=== PATIENT | male | born 1980 | race Caucasian/White ===

== ENCOUNTER 2019-06-30 12:40 | Day surgery (SDC) | payer OTHER ==
[2019-06-30] MEDS: CEFAZOLIN 2 GM/50 ML (PMX) 50 ML IVPB (12:30)
[2019-06-30] MEDS: SOD CHLORIDE 0.9% 1,000 ML IV (13:02)
[2019-06-30 13:17] LABS: ADD MAN DIFF? NO
[2019-06-30 13:19] LABS: WHITE BLOOD COUNT 9.2 10^3/ul (4.8-10.8)
[2019-06-30 13:19] LABS: BASOPHIL # 0.1 10^3/ul (0.0-0.1); BASOPHILS % 0.5 % (0.0-2.0); EOSINOPHILS % 0.2 % (0.0-7.0); HEMATOCRIT 44.2 % (42.0-52.0); HEMOGLOBIN 15.4 g/dl (14.0-18.0); LYMPHOCYTES # 3.2 10^3/ul (0.8-2.9); LYMPHOCYTES % 34.4 % (15.0-51.0); MEAN CORPUSCULAR HEMOGLOBIN 30.1 pg (29.0-33.0); MEAN CORPUSCULAR HGB CONC 34.8 g/dl (32.0-37.0); MEAN CORPUSCULAR VOLUME 86.5 fl (82.0-101.0); MEAN PLATELET VOLUME 8.5 fl (7.4-10.4); MONOCYTE # 0.4 10^3/ul (0.3-0.9); MONOCYTES % 4.6 % (0.0-11.0); NEUTROPHIL # 5.5 10^3/ul (1.6-7.5); NEUTROPHILS % 59.9 % (39.0-77.0); PLATELET COUNT 338 10^3/UL (140-415); RED BLOOD COUNT 5.11 10^6/ul (4.70-6.10); RED CELL DISTRIBUTION WIDTH 11.9 % (11.5-14.5)
[2019-06-30] MEDS ORDERED: PROPOFOL 20 ML (13:28)
[2019-06-30] MEDS ORDERED: ROCURONIUM 50 MG INJ (13:30)
[2019-06-30] MEDS ORDERED: LIDOCAINE 2% (SDV) 5 ML INJ (13:30)
[2019-06-30 13:38] LABS: ALANINE AMINOTRANSFERASE 59 IU/L (13-69); ALBUMIN/GLOBULIN RATIO 1.47; ALKALINE PHOSPHATASE 71 IU/L (42-121); ANION GAP 11 (5-13); ASPARTATE AMINO TRANSFERASE 39 IU/L (15-46); BILIRUBIN,INDIRECT 0.5 mg/dl (0-1.1); BILIRUBIN,TOTAL 0.5 mg/dl (0.2-1.3); BLOOD UREA NITROGEN 10 mg/dl (7-20); CALCIUM 9.7 mg/dl (8.4-10.2); CARBON DIOXIDE 26 mmol/L (21-31); CHLORIDE 107 mmol/L (97-110); CREATININE 0.85 mg/dl (0.61-1.24); Estimated GFR > 60 mL/min (>60); GLUCOSE 102 mg/dl (70-220); SODIUM 144 mmol/L (135-144); TOTAL PROTEIN 8.4 g/dl (6.1-8.1)
[2019-06-30 13:40] LABS: POTASSIUM 3.9 mmol/L (3.5-5.1)
[2019-06-30 13:57] LABS: INR 0.91; PROTIME 12.4 Sec (11.9-14.9)
[2019-06-30 13:58] LABS: PARTIAL THROMBOPLASTIN TIME 28.2 Sec (23.0-35.0)
[2019-06-30] MEDS ORDERED: DEXAMETHASONE 4 MG/ML 5 ML INJ (14:24)
[2019-06-30] MEDS ORDERED: ONDANSETRON 4 MG INJ (14:25)
[2019-06-30] MEDS ORDERED: SUGAMMADEX SODIUM 200 MG/2 ML VIAL IV (14:26)
[2019-06-30] MEDS ORDERED: HYDROmorphONE 1 MG/5 ML IV SYRINGE IV ×2 (14:36→15:00)
[2019-06-30] MEDS: BUPIVACAINE 0.25% (MPF) 30 ML INJ (14:37)
[2019-06-30] MEDS ORDERED: MEPERIDINE 25 MG INJ (14:41)
[2019-06-30] MEDS: MEPERIDINE 25 MG INJ IV (14:47)
[2019-06-30] MEDS: HYDROmorphONE 1 MG/5 ML IV SYRINGE IV ×2 (14:47→14:52)
[2019-06-30] MEDS: FENTAnyl 50 MCG/ML VIAL IV ×2 (14:55→15:11)
[2019-06-30] MEDS ORDERED: LABETALOL HCL 20MG INJ IV (15:00)
[2019-06-30] MEDS ORDERED: EPHEDrine 25 MG/5 ML SYG IV (15:00)
[2019-06-30] MEDS ORDERED: ONDANSETRON 4 MG INJ IV (15:00)
[2019-06-30] MEDS ORDERED: FENTAnyl 50 MCG/ML VIAL IV (15:00)
[2019-06-30] MEDS ORDERED: OXYCODONE/ACETAMINOPHEN (5/325) TAB PO (15:00)
[2019-06-30] MEDS ORDERED: hydrALAzine 20 MG INJ IV (15:00)
[2019-06-30] MEDS ORDERED: METOCLOPRAMIDE 10 MG INJ IV (15:00)
[2019-06-30] MEDS ORDERED: DIPHENHYDRAMINE 50 MG INJ IV (15:00)
[2019-06-30] MEDS ORDERED: MIDAZOLAM 1 MG/ML 2 ML INJ IV (15:00)
[2019-06-30] MEDS ORDERED: ALBUTEROL 0.083% (NEB) 2.5 MG/3 ML AMP HHN (15:00)
[2019-06-30] MEDS: HYDROCODONE/APAP (5/325) TAB PO (15:15)
[2019-06-30] MEDS: KETOROLAC 30 MG INJ IV (15:28)
[2019-06-30] MEDS: OXYCODONE/ACETAMINOPHEN (5/325) TAB PO (17:20)
== END 2019-06-30 17:44 | disposition home or self-care (01) ==
LOC: SDS 12:40
DX: K43.6 Other and unspecified ventral hernia with obstruction, without gangrene (principal)
CPT/HCPCS: 49653; 80053; 85025; 85610; 85730